=== PATIENT | male | born 1950 | race Caucasian/White ===

== ENCOUNTER → 2023-10-29 | Outpatient (CLI) | payer MEDICARE, SELFPAY ==
--- NOTE | 2023-10-29 | COLBX_PTH ---
PATIENT: TONY CONNOLLY LOC: [facility] U#:[id number] AGE/SX: 73/M ROOM: RE10/29/[address]: Dr. Anjana Licona MD : 1950 BED: DIS: 10/29/2023 SPEC #: [id number] RECD: 10/29/23 17:11 STATUS: OCTAVIO BOWENClint #: [id number] JAROD: 10/29/23 00:[address]: Anjana Licona DEPT: SURGICAL PATHOLOGY RECD BY: Leann Silva Tissues: COLON BIOPSY Procedures: Surgery Specimen Level IV HEADER OPERATION: Colonoscopy PRE-OP DIAGNOSIS: Screening/constipation TISSUE SUBMITTED: Hepatic flexure colon polyp MICROSCOPIC DIAGNOSIS Colonic polyp at hepatic flexure, biopsy: Tubular adenoma. AM/mr 11/02/2023 MICROSCOPIC DESCRIPTION Slides are reviewed. GROSS DESCRIPTION Received in fixative is one container labeled with the patient's name and designated Hepatic flexure colon polyp. The specimen consists of one irregular fragment of light sewell soft tissue that measures 0.3 x 0.3 x 0.1 cm. The specimen is totally submitted in one cassette. JOHNNY/ 11/01/2023 TC:5 CPT:90833
== END | disposition home or self-care (01) ==
PROVIDERS: Visit Provider Surgery
DX: Z12.11 Encounter for screening for malignant neoplasm of colon (principal); D12.3 Benign neoplasm of transverse colon
CPT/HCPCS: 88305

== ENCOUNTER 2023-11-02 18:45 | Inpatient (IN) | payer MEDICARE, SELFPAY ==
[2023-11-02 18:48] VITALS: BP 114/80; PULSE 87; RESP 18; TEMP 37.2; O2SAT 98; BMI 26.9
--- NOTE | 2023-11-02 19:09 | EDS_ITS ---
HPI History of Present Illness Chief Complaint: General Illness Informant: patient and family Narrative Narrative: 73-year-old male presents on Wednesday for a rash and brown discolored urine along with decreased urine output that started on Wednesday-, after he started colonoscopy prep for colonoscopy on Wednesday. He states he did not notice any abnormal symptoms prior to starting the colonoscopy prep and he has had no other medications prior to the colonoscopy. He states the rash is mostly pruritic, not severely pruritic, his son noticed it on his forehead, and he has noticed it on his legs where it is also sore and his legs have been swelling. No swelling anywhere else. No dyspnea or orthopnea. No fevers or chills or other systemic symptoms. He does state that his appetite has been poor since a colonoscopy, but he has been drinking a lot of water and not urinating nearly as much as he should be for as much as he is drinking. PFSH PFSH Medical History no medical history no medical history Home Medications ?Medication ?Instructions ?Recorded ?Last Taken ?Type NK 11/02/23 Unknown History Allergy/AdvReac Type Severity Reaction Status Date / Time No Known Allergies Allergy Verified 11/02/23 18:48 Social History Smoking Status: Former smoker ROS ROS ED Constitutional Constitutional ED: Denies chills or fever(s) Eyes Eyes: Denies change in vision or diplopia ENT ENT ED: Denies rhinorrhea or sore throat Cardiovascular Cardiovascular: Reports leg edema; Denies chest pain, palpitations or syncope Respiratory/Chest Respiratory/Chest: Denies cough, dyspnea or dyspnea on exertion Gastrointestinal Gastrointestinal: Reports other Details: Passing some flatus no bowel movement since his colonoscopy yet ; Denies abdominal pain, diarrhea, nausea or vomiting Genitourinary Genitourinary ED: Reports as per HPI, decreased urination and other Details: Brown discoloration of urine ; Denies dysuria or hematuria Musculoskeletal Musculoskeletal: Denies back pain or neck pain Integumentary Reports rash; Denies abscess Neurologic Neurologic: Denies headache(s), paresthesias or weakness Psychiatric Psychiatric: Denies anxiety or suicidal thoughts EXAM Physical Exam Const Vital Signs: 11/02/23 18:48 11/02/23 18:48 11/02/23 20:16 Temperature 98.9 F 100.2 F H Temperature Source Temporal Oral Pulse Rate 87 Respiratory Rate 18 Respiratory Effort Normal Respiratory Pattern Normal Blood Pressure 114/80 Blood Pressure Mean 91 Pulse Ox 98 Oxygen Delivery Method Room Air Positive well nourished and well developed Constitutional Narrative: Well-appearing, conversive in full sentences General Appearance ED: well developed and NAD HEENT Reports moist mucous membranes HEENT Narrative: Normal mucous membranes no lesions normocephalic and atraumatic Eyes PERRL and EOMs intact bilaterally Eyes Narrative: Normal conjunctivae bilaterally General Eye ED: Negative for scleral icterus Neck full ROM, no lymphadenopathy, supple and no JVD Chest Wall palpation of chest normal Resp normal respiratory effort and clear to auscultation bilaterally Cardio regular rate, regular rhythm and no murmurs Rate: Negative for tachycardic GI non-tender and non-distended Auscultation: normoactive bowel sounds Palpation: soft Back/Spine no CVA tenderness General Back: other FROM Extremity Extremity Narrative: Normal to inspection except for edema in the legs and patchy rash x all 4 General Extremety ED: Yes edema; Negative for pulses abnormal or tenderness General Extremity: edema bilateral lower extremity Details: moderate; Negative for pulses abnormal Neuro oriented x3, CN's II-XII intact bilaterally and no sensory deficits noted Sensorium / Orientation: awake and alert Motor Exam: strength 5/5 throughout Skin no wounds Skin Narrative: Scattered rash throughout the body including both arms and both legs, abdomen, chest, face/forehead, back; there are large patches of blanching erythema some of them are target lesions, nonspecifically tender. No petechiae or purpura. They are not raised. MDM MDM MDM Narrative Medical decision making narrative: This is an unusual rash. Considering the possibility of Lyme disease however usually there is only 1 erythema migrans lesion, and while a couple of these appear like target lesions they are not gigantic and they are everywhere. Erythema multiforme is considered, but no evidence of Prajapati-Jonny syndrome and the patient is not on any drugs other than what he was given during his colonoscopy and I do not think that the prep would be likely to cause any of this since most are fairly inert and not absorbed. Evaluating his labs, indeed his urine is brown/shantell likely because of bilirubin possibly proteinuria, and his bilirubin is a little elevated at 1.4 as are couple of his liver enzymes and his albumin is low which may be contributing to the edema in his legs. His renal function is normal, but there is significant proteinuria. Sodium and potassium both depressed slightly but not a need of emergent replacement, and his blood counts are noted. Patient developed low-grade fever 100.2, otherwise vital signs are normal and no new symptoms. Discussed with hospitalist. Agrees, consistent with nephrotic syndrome, and admission recommended. Etiology of the rash is unknown but his recommendation is to treat empirically for Lyme with Rocephin since we sent the screening test, and request a CT of the abdomen/pelvis with IV contrast to evaluate his liver. Patient does state that he used to drink a lot of alcohol, but he has not drank alcohol in years and never had any issues from it in the past. I reviewed the CT images as well as the report which I agree with. History & Record Review Additional record(s) reviewed:: No prior records (Colonoscopy was at [facility] and records not available) Lab Data Attestation: I reviewed the patient's lab results. Labs: Laboratory Results - last 24 hr 11/02/23 11/02/23 19:30 20:07 WBC 9.7 RBC 4.01 L Hgb 12.6 L Hct 37.4 L MCV 93.3 MCH 31.4 MCHC 33.7 RDW Std Deviation 40.3 RDW Coeff of Atul 11.9 Plt Count 291 MPV 8.8 Immature Gran % (Auto) 0.700 Neut % (Auto) 89.7 H Lymph % (Auto) 5.5 L [place] % (Auto) 2.9 Eos % (Auto) 0.9 Baso % (Auto) 0.3 Absolute Neuts (auto) 8.7 H Absolute Lymphs (auto) 0.54 L Nucleated RBC % 0 Differential Comment SEE COMMENT Platelet Estimate ADEQUATE RBC Morphology N CHROM Anisocytosis RARE Macrocytosis RARE PT 16.1 H INR 1.3 APTT 33.7 Sodium 133 L Potassium 3.2 L Chloride 100 Carbon Dioxide 29.0 Anion Gap 4 L BUN 13 Creatinine 1.29 Estim Creat Clear Calc 55.14 Est GFR (MDRD) Af Amer 70 Est GFR (MDRD) Non-Af 58 L BUN/Creatinine Ratio 10.1 Glucose 107 H Calcium 8.5 Phosphorus 2.3 L Magnesium 2.2 Total Bilirubin 1.40 H AST 53 H ALT 68 H Alkaline Phosphatase 87 Total Creatine Kinase 132 B-Natriuretic Peptide 161.4 H Total Protein 7.4 Albumin 2.9 L Globulin 4.5 H Albumin/Globulin Ratio 0.6 L Prealbumin 7.2 L Urine Color [place]antell Urine Clarity Clear Urine pH 5.0 Ur Specific [place] 1.020 Urine Protein 30 H Urine Glucose (UA) Normal Urine Ketones 5 H Urine Occult Blood 10 H Urine Nitrite Negative Urine Bilirubin 1 H Urine Urobilinogen 12 H Ur Leukocyte Esterase 25 H Urine RBC 0-5 SEEN Urine WBC 0-5 SEEN Ur Squamous Epith Cells 0-5 SEEN Amorphous Sediment 1+ URATE Urine Bacteria 0 SEEN Hyaline Casts 0-5 SEEN Urine Mucus 2+ Radiography Diagnostic Testing: Clinical Impression(s) from Imaging Studies Abdomen/Pelvis CT 11/02/23 20:29 IMPRESSION: Thick-walled gallbladder without calcified stones or pericholecystic edema possibly physiologic. If concern for gallbladder disease ultrasound is recommended Electronically Signed: Farnki Vargas MD at 21:54 EDT Reading Location ID and State: [facility] / [place] Tel , Service support , Management Discussion w/another healthcare provider: Hospitalist Discharge Plan Dx/Rx/DC Orders Clinical Impression: Nephrotic syndrome, Elevated liver enzymes, Rash and nonspecific skin eruption Disposition Disposition: Acute Care Hospital [facility] Discharge Date/Time: 11/02/23 21:42
[2023-11-02 19:39] LABS: Absolute Lymphocyte Count 0.54 X10^3/uL (0.83-4.51); Absolute Neutrophil Count 8.7 X10^3/uL (2.0-7.7); Basophil# 0.03 X10^3/uL; Basophil% 0.3 % (0-1); Eosinophil# 0.09 X10^3/uL; Eosinophils% 0.9 % (0-5); Hematocrit 37.4 % (40-54); Hemoglobin 12.6 g/dL (13.0-16.5); Lymphocyte # 0.54 X10^3/ul (0.83-4.51); Lymphocyte % 5.5 % (19-41); Mean Corp Hgb Conc 33.7 g/dL (32-36); Mean Corpuscular Hgb 31.4 pg (27.0-32.0); Mean Corpuscular Volume 93.3 fL (80-94); Mean Platelet Vol. 8.8 fl (6.2-12.0); Monocyte# 0.28 X10^3/uL; Monocyte% 2.9 % (0-10); NRBC Flagged by Analyzer 0 % (0-5); Neutrophil # 8.73 X10^3/uL (2.7-7.7); Neutrophil % 89.7 % (47-70); POSITIVE DIFFERENTIAL YES; Platelet Count 291 K/mm3 (150-450); RBC Distribution Width CV 11.9 % (11.6-14.6); RBC Distribution Width SD 40.3 fl (35.1-43.9); Red Blood Count 4.01 M/mm3 (4.6-6.2); White Blood Count 9.7 K/mm3 (4.4-11.0)
[2023-11-02 19:43] LABS: Differential Indicated SCAN CRITERIA MET
[2023-11-02 19:51] LABS: International Normalized Ratio 1.3; Prothrombin Time (Protime)PT. 16.1 SECONDS (11.7-14.9)
[2023-11-02 19:52] LABS: Partial Thromboplast Time 33.7 Seconds (24.1-36.2)
[2023-11-02 19:58] LABS: ALB/GLOB Ratio 0.6 RATIO (0.9-2.4); AST(SGOT) 53 U/L (15-37); Alanine Aminotransfer ALT/SGPT 68 U/L (16-61); Albumin, Serum 2.9 g/dL (3.2-5.0); Alkaline Phosphatase 87 U/L (45-117); Anion Gap 4 (5-15); BUN 13 mg/dL (7-18); BUN/Creat Ratio 10.1 RATIO (10-20); Calcium,Total 8.5 mg/dL (8.5-10.1); Chloride 100 mmol/L (98-107); Creatinine, Serum 1.29 mg/dL (0.70-1.30); EST Glomerular Filtration Rate 58 mL/min (>60); Est Glom Filt Rate - Afr Amer 70 mL/min (>60); Estimated Creatinine Clearance 55.14 ml/min; Globulin 4.5 g/dL (2.2-4.2); Glucose 107 mg/dL (74-106); Potassium 3.2 mmol/L (3.5-5.1); Protein, Total 7.4 g/dL (6.4-8.2); Sodium Level 133 mmol/L (136-145)
[2023-11-02 20:07] LABS: Platelet Estimate ADEQUATE (ADEQ)
[2023-11-02 20:08] LABS: Anisocytosis RARE; Macrocytosis RARE; Red Cell Morphology N CHROM NORMAL (NORM C&C)
[2023-11-02 20:13] LABS: Bacteria 0 SEEN /hpf (None Seen)
[2023-11-02 20:15] LABS: Color, Urine Amber (Yellow); Glucose, Dipstick Normal (Normal); Ketone-Dipstick 5 mg/dl (Negative); Leukocyte Esterase-Dipstick 25 /ul (Negative); Nitrite-Dipstick Negative (Negative); Occult Blood-Urine 10 /ul (Negative); Protein-Dipstick 30 mg/dl (Negative); Urine Clarity Clear (Clear); Urine Urobilinogen 12 mg/dl (Normal)
[2023-11-02 20:16] VITALS: TEMP 37.9
[2023-11-02 20:16] LABS: Urine Bilirubin Dipstick 1 mg/dL (Negative)
--- NOTE | 2023-11-02 20:24 | PCM.HP.STD ---
[facility] - General General Date of Admission: 11/02/23 Date of Service: 11/02/23 Chief Complaint: Rash, Fever, LE Edema and Discolored Urine after Bowel Prep for Colonoscopy. HPI Narrative TONY CONNOLLY, is a 73 M with a past medical history of being overweight; with BMI of 26.9 this admission, remote history of binge EtOH abuse; quit several years ago and recent outpatient colonoscopy on Wednesday, October 29, 2023 for which she began bowel prep on Friday, October 27, 2023 with subsequent rash and discolored brownish urine since that time who presents to [facility] complaining of extensive rash, fever and lower extremity edema. Mr. Connolly also admits to decreased urinary output in spite of increasing his fluid intake and he explains his rash is modestly pruritic with his son noticing it on his forehead and also on his legs where he had been swelling. There is no report of swelling in his upper extremities or other body regions but his rash is patchy and present on his trunk and all extremities. There is no complaint of shortness of breath or orthopnea. He does state that he has a poor appetite since colonoscopy. He admits he has [place] staying in a cabin and has had several tick bites recently but he denies a previous history of Lyme disease, kidney disease, nephrotic syndrome or other chronic illness as he is on no medications at this time, has no known drug allergies and has no other significant past medical history. In the ER he was noted to have an extensive modestly pruritic maculopapular rash over his face and legs complicated by laboratory evidence of hypokalemia of 3.2 mmol/L present on admission and mild hyperbilirubinemia with hypertransaminasemia evidenced by elevated total bilirubin of 1.4 mg/dL and AST of 53 units/L and ALT of 68 units/L with hypoalbuminemia of 2.9 g/dL and a urinalysis showing elevated urine bilirubin at 1 mg/dL with an elevated urine protein of 30 mg/dL consistent with suspected early nephrotic syndrome due to tickborne illness with a high index of suspicion for Lyme disease with Lyme total antibody pending at this time. He was then admitted to the general medical floor for ongoing care for stay that is expected to extend beyond 2 midnights. [facility] Medical History no medical history Home Medications ?Medication ?Instructions ?Recorded ?Last Taken ?Type NK 11/02/23 Unknown History Allergy/AdvReac Type Severity Reaction Status Date / Time No Known Allergies Allergy Verified 11/02/23 18:48 Social History Smoking Status: Former smoker ROS ROS Narrative Review of systems: Constitutional: Reports fatigue and weakness with fever 100.2 ?F noted on admission. HEENT: Patient denies headache, runny nose or sore throat. Respiratory/Chest: Patient denies shortness of breath or cough. CVS: Patient denies chest pain, palpitations or heart racing. Gastrointestinal: Denies coffee ground emesis, hematemesis or vomiting Genitourinary: Denies burning urination or new urinary tract symptoms Musculoskeletal: Denies acute joint pain or limited range of motion. No acute injury Neurologic: Patient denies headache, paresthesias or focal neurologic deficits. skin: Patient has a pastchy maculopapular rash over his forehead, trunk, arms and legs as per HPI. Endocrinology: Patient denies polyuria, polydipsia or polyphagia. Hematologic/Lymphatic: Patient admits to new lower extremity edema as per HPI. Rest 14 ROS are negative except as mentioned in HPI Vital Signs Vital Signs Vital Signs: 11/02/23 18:48 11/02/23 18:48 11/02/23 20:16 Temperature 98.9 F 100.2 F H Temperature Source Temporal Oral Pulse Rate 87 Respiratory Rate 18 Respiratory Effort Normal Respiratory Pattern Normal Blood Pressure 114/80 Blood Pressure Mean 91 Pulse Ox 98 Oxygen Delivery Method Room Air Weight Weight: 198 lb 11.2 oz Body Mass Index (BMI) 26.9 Physical Exam Const alert, oriented x3, no apparent distress, average body habitus and healthy appearing General Appearance: cooperative HEENT normocephalic, head/scalp atraumatic, hearing grossly normal bilaterally and moist oral mucous membranes HEENT Narrative: Patient has a rash over his forehead. Eyes PERRL and EOMs intact bilaterally Neck no lymphadenopathy and supple Resp normal respiratory effort, no retractions, no use of accessory muscles and clear to auscultation bilaterally Cardio regular rate and regular rhythm GI normal to inspection, nondistended, normoactive bowel sounds, soft to palpation, non-tender and non-distended Extremity Extremity Narrative: 1-2+ bilateral lower extremity pitting edema noted. Skin Skin Narrative: Patient has a patchy maculopapular rash over his forehead, trunk, arms and legs. Neuro oriented x3, CN's II-XII intact bilaterally, moves all extremities and no focal motor deficits Sensorium / Orientation: awake, alert, oriented to person, oriented to place and oriented to time Speech: speech normal Psych affect normal Results Medical Records Data Attestation: I reviewed the patient's medical records Lab / Micro Data Attestation: I reviewed the patient's lab results. 11/03/23 04:04 11/03/23 04:04 Labs: Laboratory Results - last 24 hr 11/02/23 19:30: WBC 9.7, RBC 4.01 L, Hgb 12.6 L, Hct 37.4 L, MCV 93.3, MCH 31.4, MCHC 33.7, RDW Std Deviation 40.3, RDW Coeff of Atul 11.9, Plt Count 291, MPV 8.8, Immature Gran % (Auto) 0.700, Neut % (Auto) 89.7 H, Lymph % (Auto) 5.5 L, Gage % (Auto) 2.9, Eos % (Auto) 0.9, Baso % (Auto) 0.3, Absolute Neuts (auto) 8.7 H, Absolute Lymphs (auto) 0.54 L, Nucleated RBC % 0, Differential Comment SEE COMMENT, Platelet Estimate ADEQUATE, RBC Morphology N CHROM, Anisocytosis RARE, Macrocytosis RARE, PT 16.1 H, INR 1.3, APTT 33.7, Sodium 133 L, Potassium 3.2 L, Chloride 100, Carbon Dioxide 29.0, Anion Gap 4 L, BUN 13, Creatinine 1.29, Estim Creat Clear Calc 55.14, Est GFR (MDRD) Af Amer 70, Est GFR (MDRD) Non-Af 58 L, BUN/Creatinine Ratio 10.1, Glucose 107 H, Calcium 8.5, Total Bilirubin 1.40 H, AST 53 H, ALT 68 H, Alkaline Phosphatase 87, Total Protein 7.4, Albumin 2.9 L, Globulin 4.5 H, Albumin/Globulin Ratio 0.6 L 11/02/23 20:07: Urine Color [place], Urine Clarity Clear, Urine pH 5.0, Ur Specific [place] 1.020, Urine Protein 30 H, Urine Glucose (UA) Normal, Urine Ketones 5 H, Urine Occult Blood 10 H, Urine Nitrite Negative, Urine Bilirubin 1 H, Urine Urobilinogen 12 H, Ur Leukocyte Esterase 25 H Imaging [facility] Imaging Services [address] [place], [place] [id number] Abdomen/Pelvis W IV Cont ONLY MR#: [id number] Acct: [id number] Name: TONY CONNOLLY Rep #: [id number] : 1950 M 73 From: Franki Vargas MD PCP: Dr. Emory Villafuerte, DO Status: ADM IN Study: Abdomen/Pelvis W IV Cont ONLY Date of Exam: 11/02/23 Exam# [id number] Ordering Dr: Eyal Rogers MD STUDY: CT ABDOMEN AND PELVIS WITH CONTRAST REASON FOR EXAM: Male, 73 years old. elevated liver enzymes RADIATION DOSAGE (If Supplied By Facility): CTDIvol = ( 15.56 ) mGy, DLP = ( 1064.29 ) mGycm TECHNIQUE: Transaxial images were obtained from the dome of the diaphragm to the symphysis pubis without oral contrast. IV 100mL Isovue-370 was administered. Sagittal and coronal images were reconstructed. Individualized dose optimization techniques were used for this CT. COMPARISON: None. FINDINGS: The visualized lung bases are unremarkable. Heart size is normal. There is mild coronary artery calcification. Large hiatal hernia is observed.. Normal liver. [Thick-walled gallbladder without calcified stones or pericholecystic edema.. Normal spleen. Normal pancreas. Normal bilateral adrenal glands. Normal right kidney. Normal left kidney. Normal visualized stomach. Normal small intestine. Normal colon. The appendix is visualized and appears normal. Mild atherosclerotic disease of the aorta without evidence for aneurysm. Normal inferior vena cava. Normal retroperitoneum. Nonspecific enlargement of the prostate in association with diffusely thick-walled bladder Small bilateral fat-containing inguinal hernias.. Lumbar spine demonstrates degenerative changes CT/Abdomen/Pelvis W IV Cont ONLY IMPRESSION: Thick-walled gallbladder without calcified stones or pericholecystic edema possibly physiologic. If concern for gallbladder disease ultrasound is recommended Electronically Signed: Franki Vargas MD at 21:54 EDT Reading Location ID and State: [address] [place] [address] Tel , Service support , CC: Dr. Eyal Rogers MD; Dr. Emory Villafuerte DO ~ Undraped Artist Model: Signed Assessment & Plan Assessment/Plan (1) Tick bite: QUALIFIERS: Encounter type: initial encounter Site of tick bite: unspecified site Qualified Code(s): W57.XXXA - Bitten or stung by nonvenomous insect and other nonvenomous arthropods, initial encounter (2) Lyme disease, unspecified: (3) Rash and nonspecific skin eruption: (4) Elevated liver enzymes: (5) Nephrotic syndrome: (6) Hypokalemia: PLAN: Plan 1. Recent tick bite with high-index of suspicion for underlying Lyme disease evidenced by rash, fever and mild hyperbilirubinemia with hypertransaminasemia evidenced by elevated total bilirubin of 1.4 mg/dL and AST of 53 units/L and ALT of 68 units/L - Admit to general medical floor. Continue antibiotics with IV doxycycline and await Lyme antibody study and tickborne illness titers. Check hepatitis panel to expand differential diagnosis and recheck CMP in a.m to follow trend of response to therapy. Given Benadryl IV as needed for pruritus. Give ibuprofen as needed for pain or fever. Finally, we will consult Dr. Garcia of infectious diseases to see this patient on rounds in a.m. for further recommendations with help appreciated in advance. 2. Hypoalbuminemia of 2.9 g/dL and a urinalysis showing elevated urine bilirubin at 1 mg/dL with an elevated urine protein of 30 mg/dL with a brownish discolored urine consistent with suspected early nephrotic syndrome with new onset lower extremity edema due to tickborne illness likely arising from #1 - Check 24-hour urine collection for protein to confirm suspicion. CT scan of abdomen pelvis also pending to evaluate liver and kidneys for signs of acute inflammation. Check prealbumin to screen for protein calorie malnutrition. Avoid Tylenol or other potentially hepatotoxic agents. 3. Hypokalemia of 3.2 mmol/L present on admission complicating #1 & #2 - Give supplemental KCl and then recheck level in a.m. to ensure improvement. 4. Recent outpatient colonoscopy on Sunday, October 29, 2023 for which she began bowel prep on Friday, October 27, 2023 - Noted. 5. Overweight; with BMI of 26.9 this admission - Weight loss will be recommended. Check TSH. 6. DVT prophylaxis - Lovenox 40 mg sq daily. Total time: Approximately 75 minutes. Charges/Coding Visit Charges Inpatient E&M: 56755 Init Hosp L3
--- NOTE | 2023-11-02 20:29 | CT_ITS ---
STUDY: CT ABDOMEN AND PELVIS WITH CONTRAST REASON FOR EXAM: Male, 73 years old. elevated liver enzymes RADIATION DOSAGE (If Supplied By Facility): CTDIvol = ( 15.56 ) mGy, DLP = ( 1064.29 ) mGycm TECHNIQUE: Transaxial images were obtained from the dome of the diaphragm to the symphysis pubis without oral contrast. IV 100mL Isovue-370 was administered. Sagittal and coronal images were reconstructed. Individualized dose optimization techniques were used for this CT. COMPARISON: None. FINDINGS: The visualized lung bases are unremarkable. Heart size is normal. There is mild coronary artery calcification. Large hiatal hernia is observed.. Normal liver. [Thick-walled gallbladder without calcified stones or pericholecystic edema.. Normal spleen. Normal pancreas. Normal bilateral adrenal glands. Normal right kidney. Normal left kidney. Normal visualized stomach. Normal small intestine. Normal colon. The appendix is visualized and appears normal. Mild atherosclerotic disease of the aorta without evidence for aneurysm. Normal inferior vena cava. Normal retroperitoneum. Nonspecific enlargement of the prostate in association with diffusely thick-walled bladder Small bilateral fat-containing inguinal hernias.. Lumbar spine demonstrates degenerative changes CT/Abdomen/Pelvis W IV Cont ONLY IMPRESSION: Thick-walled gallbladder without calcified stones or pericholecystic edema possibly physiologic. If concern for gallbladder disease ultrasound is recommended Electronically Signed: Franki Vargas MD at 21:54 EDT ,
[2023-11-02 20:52] LABS: Amorphous Sediment 1+ URATE; Hyaline Cast 0-5 SEEN /lpf (0-5); Mucous, Urine 2+ /hpf (<or=2+); Red Blood Cells-Urine 0-5 SEEN /hpf (0-5); Squamous Epithelial Cells - UA 0-5 SEEN /hpf (0-5); White Blood Cells 0-5 SEEN /hpf (0-5)
[2023-11-02 20:56] LABS: CPK Total, Creatine Kinase 132 U/L (39-308)
[2023-11-02 21:14] LABS: BNP,B-Type NATRIURETIC PEPTIDE 161.4 pg/mL (0-100)
[2023-11-02] MEDS: Ceftriaxone 1 GM/50 ML BAG IV (21:15)
[2023-11-02 21:17] VITALS: BP 106/66; PULSE 71; RESP 16; TEMP 37.9; O2SAT 97
[2023-11-02 21:22] VITALS: BP 133/75; PULSE 74; RESP 18; TEMP 37.2; O2SAT 100
[2023-11-02] MEDS: Potassium Chloride Oral Tablet 20 MEQ 60 MEQ PO (21:32)
[2023-11-02] MEDS: KCL 20MEQ in 0.9% NS 20 MEQ/1,000 ML IV.SOLN. 100 MEQ IV (21:32)
[2023-11-02 21:49] LABS: Magnesium 2.2 mg/dL (1.6-2.6); Phosphorus 2.3 mg/dL (2.5-4.9)
[2023-11-02 22:00] VITALS: BP 133/75; PULSE 74; RESP 18; TEMP 37.2; O2SAT 100; BMI 27.0
[2023-11-02 22:14] LABS: Prealbumin 7.2 mg/dL (20.0-40.0)
[2023-11-02] MEDS: Doxycycline 100 MG in Dextrose 5%-Water (250mL Bag) 250 ML 250 MG IV (22:29)
[2023-11-02] MEDS: Zinc Sulfate 50 mg zinc (220 mg) ORAL capsule PO (23:37)
[2023-11-02] MEDS: Lactobacillis Acidophilus 2 CAP PO (23:37)
[2023-11-02] MEDS: Cholecalciferol (Vit D3) 125 MCG CAPSULE (5,000 UNITS) PO (23:38)
[2023-11-03] VITALS (8 sets, daily range): BP systolic 99–112; BP diastolic 58–69; PULSE 70–100; RESP 16–18; TEMP 36.1–39.5; O2SAT 96–100; BMI 27.1
[2023-11-03] MEDS: Ibuprofen 200 MG Tablet PO (02:39)
[2023-11-03] MEDS: DiphenhydrAMINE 50 MG/ML Syringe 25 MG IV (02:40)
[2023-11-03 04:32] LABS: Absolute Lymphocyte Count 0.31 X10^3/uL (0.83-4.51); Absolute Neutrophil Count 11.5 X10^3/uL (2.0-7.7); Basophil# 0.02 X10^3/uL; Basophil% 0.2 % (0-1); Eosinophil# 0.07 X10^3/uL; Eosinophils% 0.6 % (0-5); Hematocrit 34.3 % (40-54); Hemoglobin 11.5 g/dL (13.0-16.5); Lymphocyte # 0.31 X10^3/ul (0.83-4.51); Lymphocyte % 2.6 % (19-41); Mean Corp Hgb Conc 33.5 g/dL (32-36); Mean Corpuscular Hgb 31.1 pg (27.0-32.0); Mean Corpuscular Volume 92.7 fL (80-94); Mean Platelet Vol. 9.2 fl (6.2-12.0); Monocyte# 0.11 X10^3/uL; Monocyte% 0.9 % (0-10); NRBC Flagged by Analyzer 0 % (0-5); Neutrophil # 11.49 X10^3/uL (2.7-7.7); Neutrophil % 95.2 % (47-70); POSITIVE DIFFERENTIAL YES; Platelet Count 279 K/mm3 (150-450); RBC Distribution Width CV 11.9 % (11.6-14.6); RBC Distribution Width SD 40.1 fl (35.1-43.9); White Blood Count 12.1 K/mm3 (4.4-11.0)
[2023-11-03 04:58] LABS: ALB/GLOB Ratio 0.6 RATIO (0.9-2.4); AST(SGOT) 54 U/L (15-37); Alanine Aminotransfer ALT/SGPT 65 U/L (16-61); Albumin, Serum 2.5 g/dL (3.2-5.0); Alkaline Phosphatase 78 U/L (45-117); Anion Gap 9 (5-15); BUN 13 mg/dL (7-18); Calcium,Total 7.8 mg/dL (8.5-10.1); Chloride 105 mmol/L (98-107); Creatinine, Serum 1.18 mg/dL (0.70-1.30); EST Glomerular Filtration Rate 64 mL/min (>60); Est Glom Filt Rate - Afr Amer 77 mL/min (>60); Estimated Creatinine Clearance 60.28 ml/min; Globulin 3.9 g/dL (2.2-4.2); Glucose 135 mg/dL (74-106); Potassium 3.5 mmol/L (3.5-5.1); Protein, Total 6.4 g/dL (6.4-8.2); Sodium Level 137 mmol/L (136-145); Thyroid Stim Hormone (TSH) 1.04 uIU/mL (0.358-3.74)
[2023-11-03 05:13] LABS: Lactic Acid 1.6 mmol/L (0.4-1.9)
[2023-11-03] MEDS: KCL 20MEQ in 0.9% NS 20 MEQ/1,000 ML IV.SOLN. 100 MEQ IV (06:27)
[2023-11-03] MEDS: Cholecalciferol (Vit D3) 125 MCG CAPSULE (5,000 UNITS) PO (09:10)
[2023-11-03] MEDS: Ascorbic Acid 500 MG Tablet 1000 MG PO (09:10)
[2023-11-03] MEDS: Lactobacillis Acidophilus 2 CAP PO (09:10)
[2023-11-03] MEDS: Zinc Sulfate 50 mg zinc (220 mg) ORAL capsule PO (09:11)
[2023-11-03] MEDS: Enoxaparin 40 MG/0.4 ML Syringe SC (09:11)
--- NOTE | 2023-11-03 09:45 | ECHOD_ITS ---
Reason For Study: EDEMA Procedure This was a 2D Doppler, Color Flow transthoracic echocardiogram. Myocardial strain analysis was performed in this exam to aid in the assessment of cardiac function. Exam performed portable in patient room. Left Ventricle Normal LV size. The left ventricular ejection fraction is 45 %. There is mild global hypokinesis of the left ventricle. Right Ventricle Normal RV size. Atria Normal left atrium. Normal right atrium. Mitral Valve Normal mitral valve. Mild (1+) eccentric mitral valve insufficiency. Tricuspid Valve Normal tricuspid valve. Mild tricuspid valve insufficiency. Aortic Valve Trisinus/trileaflet aortic valve. Mild (1+) aortic valve insufficiency. Pulmonic Valve Normal pulmonic valve. Great Vessels Normal aortic root. The pulmonary artery is normal size. Inferior vena cava collapse with respiration. Pericardium/Pleural No pericardial effusion. MMode/2D Measurements & Calculations LVIDd: 5.5 cm IVSd: 0.97 cm LVOT diam: 2.1 cm LVIDs: 4.1 cm LVPWd: 0.90 cm LVOT area: 3.5 cm2 RVDd: 4.0 cm FS: 25.5 % Ao root diam: 3.6 cm LAV(MOD-bp): 53.8 ml LVAd ap4: 30.0 cm2 LAV(MOD-bp) Indexed: 25.4 ml/m2 LVLd ap4: 7.9 cm LAV(MOD-sp2): 51.3 ml EDV(MOD-sp4): 93.1 ml LAV(MOD-sp4): 50.6 ml EDV(sp4-el): 97.4 ml LVAs ap4: 20.5 cm2 LVLs ap4: 6.8 cm ESV(MOD-sp4): 51.2 ml ESV(sp4-el): 52.3 ml EF(MOD-sp4): 45.0 % EF(sp4-el): 46.3 % LVAd ap2: 31.5 cm2 SV(MOD-sp4): 41.9 ml SV(MOD-sp2): 54.8 ml LVLd ap2: 7.9 cm EDV(MOD-sp2): 109.4 ml EDV(sp2-el): 106.5 ml LVAs ap2: 20.7 cm2 LVLs ap2: 6.9 cm ESV(MOD-sp2): 54.6 ml ESV(sp2-el): 52.7 ml EF(MOD-sp2): 50.1 % SV(sp4-el): 45.1 ml LA dimension(2D): 3.6 cm LA A4 area: 19.5 cm2 RA A4 area: 15.7 cm2 TAPSE: 1.7 cm Time Measurements MV dec time: 0.21 sec Doppler Measurements & Calculations MV E max toni: 77.6 cm/sec Lat Peak E' Toni: 12.1 cm/sec Med Peak E' Toni: 9.1 cm/sec MV A max toni: 63.9 cm/sec E/E' lat: 6.4 E/E' med: 8.5 MV E/A: 1.2 Ao V2 max: 150.1 cm/sec AI max toni: 390.7 cm/sec MV dec slope: 377.3 cm/sec2 Ao max P.0 mmHg AI max P.0 mmHg Ao V2 mean: 102.9 cm/sec Ao mean P.8 mmHg AI dec slope: 298.7 cm/sec2 Ao V2 VTI: 28.8 cm AI P1/2t: 383.1 msec AV (velocity ratio): 0.74 TERRI(I,D): 2.6 cm2 TERRI(V,D): 2.8 cm2 LV V1 max: 117.7 cm/sec SV(LVOT): 75.2 ml PA V2 max: 84.5 cm/sec LV V1 max P.5 mmHg PA max PG (full): 1.1 mmHg LV V1 mean P.6 mmHg LV V1 mean: 90.2 cm/sec LV V1 VTI: 21.4 cm TR max toni: 213.4 cm/sec TR max P.2 mmHg ECHO/Echo Complete Interpretation Summary Normal LV size. The left ventricular ejection fraction is 45 %. There is mild global hypokinesis of the left ventricle. Mild tricuspid valve insufficiency. Mild (1+) aortic valve insufficiency. The global longitudinal strain is moderately abnormal. The global longitudinal strain = -13.8% (abnormal). Ordering Physician: Rene Ventura Referring Physician: Judah Paul Performed By: Marlena Garvey RDCS
[2023-11-03] MEDS: Doxycycline 100 MG in Dextrose 5%-Water (250mL Bag) 250 ML 250 MG IV (09:59)
--- NOTE | 2023-11-03 10:23 | CON.PCM.RE_ITS ---
Assessment & Plan Assessment/Plan (1) Proteinuria: PLAN: Extensive anasarca, maculopapular rash. Urine analysis shows 1+ protein and blood. Also gives her bilirubin. LFTs are high, bilirubin is a little bit high. The rash does not look like could be vasculitis. He does have fevers, possible tick bites. Could be Lyme disease. We will send for urine protein creatinine ratio. 24-hour urine collection is pending. I will send a ANCA panel as well. Renal function is preserved. CT abdomen without any hydronephrosis. HPI Consult Data Date of Consult: 11/03/23 HPI Narrative Reason for Consultation: Proteinuria HPI Narrative: TONY CONNOLLY, is a 73 M who presents to the hospital with complaints of lower extremity edema. Nephrology on consultation for proteinuria. Generally healthy, no significant past medical history, no prescription medication intake. Recently had colonoscopy. Immediately after colonoscopy he started having fever, chills, rash, lower extremity edema. Apparently lives in a cabin, several tick bites. Has diffuse maculopapular rash all over the body. Initially itchy and now improving. Urine was darker for the last few days. Today urine looks dark yellow. No gross hematuria. No difficulty passing urine, no breathing problems. No cough, hemoptysis. No [id number] medications/supplements. PFSH Medical History no medical history Home Medications ?Medication ?Instructions ?Recorded ?Last Taken ?Type NK 11/02/23 Unknown History Allergy/AdvReac Type Severity Reaction Status Date / Time No Known Allergies Allergy Verified 11/02/23 18:48 Social History Smoking Status: Former smoker ROS ROS Narrative Negative except above Physical Exam Narrative Alert awake oriented x 3 no obvious distress no pallor no icterus no JVD s1s2 no murmurs lungs clear abdomen soft no organomegaly no edema Extensive maculopapular blanching rash Lab / Micro Data 11/03/23 04:04 11/03/23 04:04 Labs: Laboratory Results - last 24 hr 11/02/23 19:30: WBC 9.7, RBC 4.01 L, Hgb 12.6 L, Hct 37.4 L, MCV 93.3, MCH 31.4, MCHC 33.7, RDW Std Deviation 40.3, RDW Coeff of Atul 11.9, Plt Count 291, MPV 8.8, Immature Gran % (Auto) 0.700, Neut % (Auto) 89.7 H, Lymph % (Auto) 5.5 L, [place] % (Auto) 2.9, Eos % (Auto) 0.9, Baso % (Auto) 0.3, Absolute Neuts (auto) 8.7 H, Absolute Lymphs (auto) 0.54 L, Nucleated RBC % 0, Differential Comment SEE COMMENT, Platelet Estimate ADEQUATE, RBC Morphology N CHROM, Anisocytosis RARE, Macrocytosis RARE, PT 16.1 H, INR 1.3, APTT 33.7, Sodium 133 L, Potassium 3.2 L, Chloride 100, Carbon Dioxide 29.0, Anion Gap 4 L, BUN 13, Creatinine 1.29, Estim Creat Clear Calc 55.14, Est GFR (MDRD) Af Amer 70, Est GFR (MDRD) Non-Af 58 L, BUN/Creatinine Ratio 10.1, Glucose 107 H, Calcium 8.5, Phosphorus 2.3 L, Magnesium 2.2, Total Bilirubin 1.40 H, AST 53 H, ALT 68 H, Alkaline Phosphatase 87, Total Creatine Kinase 132, B-Natriuretic Peptide 161.4 H, Total Protein 7.4, Albumin 2.9 L, Globulin 4.5 H, Albumin/Globulin Ratio 0.6 L, P realbumin 7.2 L 11/02/23 20:07: Urine Color [place], Urine Clarity Clear, Urine pH 5.0, Ur Specific [place] 1.020, Urine Protein 30 H, Urine Glucose (UA) Normal, Urine Ketones 5 H, Urine Occult Blood 10 H, Urine Nitrite Negative, Urine Bilirubin 1 H, Urine Urobilinogen 12 H, Ur Leukocyte Esterase 25 H, Urine RBC 0-5 SEEN, Urine WBC 0-5 SEEN, Ur Squamous Epith Cells 0-5 SEEN, Amorphous Sediment 1+ URATE, Urine Bacteria 0 SEEN, Hyaline Casts 0-5 SEEN, Urine Mucus 2+ 11/03/23 04:04: WBC 12.1 H, RBC 3.70 L, Hgb 11.5 L, Hct 34.3 L, MCV 92.7, MCH 31.1, MCHC 33.5, RDW Std Deviation 40.1, RDW Coeff of Atul 11.9, Plt Count 279, MPV 9.2, Immature Gran % (Auto) 0.500, Neut % (Auto) 95.2 H, Lymph % (Auto) 2.6 L, [place] % (Auto) 0.9, Eos % (Auto) 0.6, Baso % (Auto) 0.2, Absolute Neuts (auto) 11.5 H, Absolute Lymphs (auto) 0.31 L, Nucleated RBC % 0, Sodium 137, Potassium 3.5, Chloride 105, Carbon Dioxide 23.0, Anion Gap 9, BUN 13, Creatinine 1.18, Estim Creat Clear Calc 60.28, Est GFR (MDRD) Af Amer 77, Est GFR (MDRD) Non-Af 64, BUN/Creatinine Ratio 11.0, Glucose 135 H, Lactic Acid 1.6, Calcium 7.8 L, Magnesium 2.0, Total Bilirubin 1.20 H, AST 54 H, ALT 65 H, Alkaline Phosphatase 78, Total Protein 6.4, Albumin 2.5 L, Globulin 3.9, Albumin/Globulin Ratio 0.6 L , TSH 1.04 Imaging Radiology Impression Abdomen/Pelvis CT 11/02/23 20:29 IMPRESSION: Thick-walled gallbladder without calcified stones or pericholecystic edema possibly physiologic. If concern for gallbladder disease ultrasound is recommended Electronically Signed: Franki Vargas MD at 21:54 EDT ,
--- NOTE | 2023-11-03 11:45 | CASEMGMT ---
RN CM Face to Face with patient for initial transition planning/care coordination assessment. RN CM introduced self and role at [facility]. Patient lying in bed, alert and oriented. Patient willing to participate in assessment and is able to answer all questions appropriately. Care providers, pharmacy, and demographics verified. PCP: Christo Specialists: none Preferred Pharmacy: [facility] Insurance: [employer] Prescription Benefit: yes Living Will/HPOA: none LNOK: son Living Arrangements: Patient lives alone in a 2 story home. Patient is independent and able to ambulate stairs. Transportation: self, son DME/HHC: Patient denies DME in the home. No previous HHC or SNF Patient wishes to discharge home, denies need for home health at this time. Patient states he has no further needs or concerns at this time. CM to follow for discharge planning needs that may arise. Disposition Plan: Patient to discharge home with family support and follow-up plans in place. Noelle HAWKINS, RN, CM
--- NOTE | 2023-11-03 12:02 | CHAPLAIN ---
Type of Pastoral Visit _x__ Initial Visit ___ Follow-up Visit ___ On-call Visit ___ General Patient Visit ___ Spiritual Assessment ___ Family Conference ___ Bereavement ___ Rapid Response ___ Code Blue ___ Other (describe below) Pastoral Care Referral From _x__ Patient ___ Family ___ Nurse ___ Physician ___ [place]ardi Developer ___ Bond Broker ___ Other (describe below) Sacrament/Intervention _x__ Active listening ___ Anointing ___ Alevism ___ Bereavement ___ Communion ___ Marily exploration ___ _x__ Life review ___ Prayer ___ Reconciliation ___ Sacrament of Sick _x__ Supportive presence ___ Wedding ___ Other (describe below) Pastoral Comments patient presents self with a strong independent attitude; pt is adamant that he will be taking a shower today, that they don't know why he is sick (with distrust of medical personnel), and that I'll leave when I want to; pt is also very complimentary about the nice people here and everyone is treating me well; pt states that he is not anabaptist; pt lives in the [facility] in a cabin where he likes it away from people; time given to listen to pt and to offer presence and show of concern for him
--- NOTE | 2023-11-03 12:15 | PCM.PN.HOSP ---
Reason for Visit Reason for Visit: Diagnoses Lyme disease, unspecified (11/02/23) Hypokalemia (11/02/23) Nephrotic syndrome with unspecified morphologic changes (11/02/23) Rash and other nonspecific skin eruption (11/02/23) Abnormal levels of other serum enzymes (11/02/23) Proteinuria, unspecified (11/02/23) Bitten or stung by nonvenomous insect and other nonvenomous arthropods, initial encounter (11/02/23) Subjective Subjective Patient was seen and examined today, he was admitted due to concerns of possible Lyme's disease and possible nephrotic syndrome. I had nephrology see the patient today and they do not feel the patient has nephrotic syndrome. Patient does have significant edema in the lower legs, I ordered an echocardiogram to rule out LV dysfunction. Objective Data Objective Data Vital Signs: Vital Signs Temp Pulse Resp BP Pulse Ox O2 Del Method 99.4 F H 92 16 99/66 97 Room Air 11/03/23 08:00 11/03/23 08:00 11/03/23 08:00 11/03/23 08:00 11/03/23 08:00 11/03/23 08:00 Oxygen Delivery Method Room Air Weight: 91 kg Body Mass Index (BMI) 27.1 Intake & Output: Intake and Output for Last 24 Hours 11/01/23 11/02/23 11/03/23 23:59 23:59 23:59 Intake Total 310 / 750 1591.67 / 1591.67 Output Total 300 / 300 Balance 310 / 450 1291.67 / 1291.67 Lab / Micro Data 11/03/23 04:04 11/03/23 04:04 Labs: Laboratory Results - last 24 hr 11/02/23 19:30: WBC 9.7, RBC 4.01 L, Hgb 12.6 L, Hct 37.4 L, MCV 93.3, MCH 31.4, MCHC 33.7, RDW Std Deviation 40.3, RDW Coeff of Atul 11.9, Plt Count 291, MPV 8.8, Immature Gran % (Auto) 0.700, Neut % (Auto) 89.7 H, Lymph % (Auto) 5.5 L, [place] % (Auto) 2.9, Eos % (Auto) 0.9, Baso % (Auto) 0.3, Absolute Neuts (auto) 8.7 H, Absolute Lymphs (auto) 0.54 L, Nucleated RBC % 0, Differential Comment SEE COMMENT, Platelet Estimate ADEQUATE, RBC Morphology N CHROM, Anisocytosis RARE, Macrocytosis RARE, PT 16.1 H, INR 1.3, APTT 33.7, Sodium 133 L, Potassium 3.2 L, Chloride 100, Carbon Dioxide 29.0, Anion Gap 4 L, BUN 13, Creatinine 1.29, Estim Creat Clear Calc 55.14, Est GFR (MDRD) Af Amer 70, Est GFR (MDRD) Non-Af 58 L, BUN/Creatinine Ratio 10.1, Glucose 107 H, Calcium 8.5, Phosphorus 2.3 L, Magnesium 2.2, Total Bilirubin 1.40 H, AST 53 H, ALT 68 H, Alkaline Phosphatase 87, Total Creatine Kinase 132, B-Natriuretic Peptide 161.4 H, Total Protein 7.4, Albumin 2.9 L, Globulin 4.5 H, Albumin/Globulin Ratio 0.6 L, Prealbumin 7.2 L 11/02/23 20:07: Urine Color [place], Urine Clarity Clear, Urine pH 5.0, Ur Specific [place] 1.020, Urine Protein 30 H, Urine Glucose (UA) Normal, Urine Ketones 5 H, Urine Occult Blood 10 H, Urine Nitrite Negative, Urine Bilirubin 1 H, Urine Urobilinogen 12 H, Ur Leukocyte Esterase 25 H, Urine RBC 0-5 SEEN, Urine WBC 0-5 SEEN, Ur Squamous Epith Cells 0-5 SEEN, Amorphous Sediment 1+ URATE, Urine Bacteria 0 SEEN, Hyaline Casts 0-5 SEEN, Urine Mucus 2+ 11/03/23 04:04: WBC 12.1 H, RBC 3.70 L, Hgb 11.5 L, Hct 34.3 L, MCV 92.7, MCH 31.1, MCHC 33.5, RDW Std Deviation 40.1, RDW Coeff of Atul 11.9, Plt Count 279, MPV 9.2, Immature Gran % (Auto) 0.500, Neut % (Auto) 95.2 H, Lymph % (Auto) 2.6 L, [place] % (Auto) 0.9, Eos % (Auto) 0.6, Baso % (Auto) 0.2, Absolute Neuts (auto) 11.5 H, Absolute Lymphs (auto) 0.31 L, Nucleated RBC % 0, Sodium 137, Potassium 3.5, Chloride 105, Carbon Dioxide 23.0, Anion Gap 9, BUN 13, Creatinine 1.18, Estim Creat Clear Calc 60.28, Est GFR (MDRD) Af Amer 77, Est GFR (MDRD) Non-Af 64, BUN/Creatinine Ratio 11.0, Glucose 135 H, Lactic Acid 1.6, Calcium 7.8 L, Magnesium 2.0, Total Bilirubin 1.20 H, AST 54 H, ALT 65 H, Alkaline Phosphatase 78, Total Protein 6.4, Albumin 2.5 L, Globulin 3.9, Albumin/Globulin Ratio 0.6 L, TSH 1.04 Radiography Diagnostic Testing: Radiology Impression Abdomen/Pelvis CT 11/02/23 20:29 IMPRESSION: Thick-walled gallbladder without calcified stones or pericholecystic edema possibly physiologic. If concern for gallbladder disease ultrasound is recommended Electronically Signed: Franki Vargas MD at 21:54 EDT Reading Location ID and State: [facility] / [place] Tel , Service support , Physical Exam Const alert, oriented x3, no apparent distress, average body habitus and healthy appearing Constitutional Narrative: Patient has a diffuse rash over multiple areas of the body, this rash is flat there are no bullae noted General Appearance: cooperative, well kempt and well developed Orientation / Consciousness: awake, oriented to person, oriented to place and oriented to time HEENT normocephalic, head/scalp atraumatic and moist oral mucous membranes Eyes PERRL, EOMs intact bilaterally and conjunctivae normal Neck supple, no JVD, thyroid normal and no carotid bruits General: trachea midline Resp normal respiratory effort, no retractions, no use of accessory muscles and clear to auscultation bilaterally Auscultation: Negative for rales, rhonchi or wheezes Cardio regular rate, regular rhythm, S1 normal heart sound, S2 normal heart sound, no murmurs, no rub and no gallops GI normal to inspection, nondistended, normoactive bowel sounds, soft to palpation, non-tender and non-distended Extremity Extremity Narrative: There is generalized edema which is pitting noted over the feet, ankle areas, and lower legs Skin Skin Narrative: There is a diffuse flat red rash over the patient's arms and chest and legs General Skin Exam: no breakdown Neuro oriented x3, CN's II-XII intact bilaterally, no focal motor deficits and no sensory deficits noted Sensorium / Orientation: awake and alert Speech: speech normal Psych affect normal Assessment & Plan Assessment/Plan (1) Rash and nonspecific skin eruption: PLAN: Plan 1. Diffuse rash-etiology unclear, patient is being seen by infectious diseases, he currently is on doxycycline #2 proteinuria-nephrology is participating in his care, he does not have nephrotic syndrome #3 lower extremity edema-etiology unclear-echocardiogram was ordered to rule out LV dysfunction #4 hyperbilirubinemia-this is mild at this time, I do not feel I need to order additional studies, patient does have some elevation of his liver enzymes which appear to be minor Total clinical time spent by myself addressing the patient's medical issues, reviewing all of his data, and collaborating with patient's care team: 35 minutes Charges/Coding Visit Charges Inpatient E&M: 96962 Subs Hosp L2
--- NOTE | 2023-11-03 13:21 | PCM.CONS.GEN ---
Assessment & Plan Assessment/Plan (1) Rash and nonspecific skin eruption: PLAN: fever, rash, fatigue, urine changes, mild LFT elevation - seen by neph. 24h urine pending. Lyme pending. Hep panel pending. Feeling better. Cont doxy, will change to po. Will follow, thank you HPI Consult Data Date of Consult: 11/03/23 HPI Narrative Reason for Consultation: fever HPI Narrative: TONY CONNOLLY, is a 73 M with remote h/o etoh abuse, had colonoscopy 10/26. After procedure, developed rash, nausea, fever, edema, headache, n/v/d, severe fatigue. Rash was red, itchy. Lives [place] cabin with [place] over [place] summer, has a dog, no other animal exposures, no recent sex partners. Has ticks occasionally, but none embedded in him and he checks frequently himself and his dog. No joint or muscle aches. No sick contacts. Urine also turned dark brown and opaque. Admitted from ED on iv doxy, seen by neph. Feeling better today. Full ROS performed and neg except as noted above. PFSH Medical History no medical history Home Medications ?Medication ?Instructions ?Recorded ?Last Taken ?Type NK 11/02/23 Unknown History Allergy/AdvReac Type Severity Reaction Status Date / Time No Known Allergies Allergy Verified 11/02/23 18:48 Social History Smoking Status: Former smoker Physical Exam Const alert, oriented x3 and no apparent distress General Appearance: cooperative HEENT normocephalic and head/scalp atraumatic Eyes PERRL and EOMs intact bilaterally Neck supple and No nodes Resp normal air movement and clear to auscultation bilaterally Cardio regular rate and regular rhythm GI soft to palpation, non-tender and non-distended Extremity General Extremity: edema Skin Skin Narrative: diffuse patchy erythema on trunks and limbs Neuro CN's II-XII intact bilaterally Lab / Micro Data Attestation: I reviewed the patient's lab results. 11/03/23 04:04 11/03/23 04:04 Labs: Laboratory Results - last 24 hr 11/02/23 19:30: WBC 9.7, RBC 4.01 L, Hgb 12.6 L, Hct 37.4 L, MCV 93.3, MCH 31.4, MCHC 33.7, RDW Std Deviation 40.3, RDW Coeff of Atul 11.9, Plt Count 291, MPV 8.8, Immature Gran % (Auto) 0.700, Neut % (Auto) 89.7 H, Lymph % (Auto) 5.5 L, [place] % (Auto) 2.9, Eos % (Auto) 0.9, Baso % (Auto) 0.3, Absolute Neuts (auto) 8.7 H, Absolute Lymphs (auto) 0.54 L, Nucleated RBC % 0, Differential Comment SEE COMMENT, Platelet Estimate ADEQUATE, RBC Morphology N CHROM, Anisocytosis RARE, Macrocytosis RARE, PT 16.1 H, INR 1.3, APTT 33.7, Sodium 133 L, Potassium 3.2 L, Chloride 100, Carbon Dioxide 29.0, Anion Gap 4 L, BUN 13, Creatinine 1.29, Estim Creat Clear Calc 55.14, Est GFR (MDRD) Af Amer 70, Est GFR (MDRD) Non-Af 58 L, BUN/Creatinine Ratio 10.1, Glucose 107 H, Calcium 8.5, Phosphorus 2.3 L, Magnesium 2.2, Total Bilirubin 1.40 H, AST 53 H, ALT 68 H, Alkaline Phosphatase 87, Total Creatine Kinase 132, B-Natriuretic Peptide 161.4 H, Total Protein 7.4, Albumin 2.9 L, Globulin 4.5 H, Albumin/Globulin Ratio 0.6 L, Prealbumin 7.2 L 11/02/23 20:07: Urine Color [place], Urine Clarity Clear, Urine pH 5.0, Ur Specific [place] 1.020, Urine Protein 30 H, Urine Glucose (UA) Normal, Urine Ketones 5 H, Urine Occult Blood 10 H, Urine Nitrite Negative, Urine Bilirubin 1 H, Urine Urobilinogen 12 H, Ur Leukocyte Esterase 25 H, Urine RBC 0-5 SEEN, Urine WBC 0-5 SEEN, Ur Squamous Epith Cells 0-5 SEEN, Amorphous Sediment 1+ URATE, Urine Bacteria 0 SEEN, Hyaline Casts 0-5 SEEN, Urine Mucus 2+ 11/03/23 04:04: WBC 12.1 H, RBC 3.70 L, Hgb 11.5 L, Hct 34.3 L, MCV 92.7, MCH 31.1, MCHC 33.5, RDW Std Deviation 40.1, RDW Coeff of Atul 11.9, Plt Count 279, MPV 9.2, Immature Gran % (Auto) 0.500, Neut % (Auto) 95.2 H, Lymph % (Auto) 2.6 L, [place] % (Auto) 0.9, Eos % (Auto) 0.6, Baso % (Auto) 0.2, Absolute Neuts (auto) 11.5 H, Absolute Lymphs (auto) 0.31 L, Nucleated RBC % 0, Sodium 137, Potassium 3.5, Chloride 105, Carbon Dioxide 23.0, Anion Gap 9, BUN 13, Creatinine 1.18, Estim Creat Clear Calc 60.28, Est GFR (MDRD) Af Amer 77, Est GFR (MDRD) Non-Af 64, BUN/Creatinine Ratio 11.0, Glucose 135 H, Lactic Acid 1.6, Calcium 7.8 L, Magnesium 2.0, Total Bilirubin 1.20 H, AST 54 H, ALT 65 H, Alkaline Phosphatase 78, Total Protein 6.4, Albumin 2.5 L, Globulin 3.9, Albumin/Globulin Ratio 0.6 L, TSH 1.04 Imaging Radiology Impression Abdomen/Pelvis CT 11/02/23 20:29 IMPRESSION: Thick-walled gallbladder without calcified stones or pericholecystic edema possibly physiologic. If concern for gallbladder disease ultrasound is recommended Electronically Signed: Franki Vargas MD at 21:54 EDT Reading Location ID and State: [facility] / [place] Tel , Service support ,
--- NOTE | 2023-11-03 14:30 | NURSING ---
This RN taking over care at this time
[2023-11-03] MEDS: Doxycycline 100 MG CAPSULE PO (21:22)
[2023-11-04 04:00] VITALS: BP 107/64; PULSE 69; RESP 18; TEMP 36; O2SAT 98
[2023-11-04 04:01] VITALS: BMI 27.6
[2023-11-04 05:07] LABS: HEPATITIS B SURFACE AG Negative (Negative); Hep C Antibodies Non Reactive (Non Reactive); Hepatitis A IgM Antibody Negative (Negative); Hepatitis B Core AB IgM Negative (Negative)
[2023-11-04 06:36] LABS: 24 Hour Urine Protein 316.2 mg/24HR (<150 MG/24HR); 24HR. UA Prot. Total Volume 600 mL; Urine Protein (24 Hour) 52.7 mg/dL (<11.9)
[2023-11-04 07:26] LABS: Absolute Neutrophil Count 7.5 X10^3/uL (2.0-7.7); Basophil# 0.02 X10^3/uL; Basophil% 0.2 % (0-1); Eosinophil# 0.23 X10^3/uL; Eosinophils% 2.6 % (0-5); Hematocrit 33.4 % (40-54); Hemoglobin 11.1 g/dL (13.0-16.5); Mean Corp Hgb Conc 33.2 g/dL (32-36); Mean Corpuscular Hgb 31.4 pg (27.0-32.0); Mean Corpuscular Volume 94.4 fL (80-94); Mean Platelet Vol. 9.1 fl (6.2-12.0); Monocyte% 2.3 % (0-10); NRBC Flagged by Analyzer 0 % (0-5); Neutrophil # 7.52 X10^3/uL (2.7-7.7); Neutrophil % 85.1 % (47-70); Platelet Count 255 K/mm3 (150-450); RBC Distribution Width CV 12.2 % (11.6-14.6); RBC Distribution Width SD 42.5 fl (35.1-43.9); Red Blood Count 3.54 M/mm3 (4.6-6.2); White Blood Count 8.8 K/mm3 (4.4-11.0)
[2023-11-04 07:47] LABS: Anion Gap 6 (5-15); BUN 13 mg/dL (7-18); BUN/Creat Ratio 13.4 RATIO (10-20); Calcium,Total 8.4 mg/dL (8.5-10.1); Chloride 109 mmol/L (98-107); Creatinine, Serum 0.97 mg/dL (0.70-1.30); EST Glomerular Filtration Rate 80 mL/min (>60); Est Glom Filt Rate - Afr Amer 97 mL/min (>60); Estimated Creatinine Clearance 73.33 ml/min; Glucose 109 mg/dL (74-106); Phosphorus 2.4 mg/dL (2.5-4.9); Potassium 3.8 mmol/L (3.5-5.1); Sodium Level 139 mmol/L (136-145)
[2023-11-04 08:10] LABS: Cholesterol 93 mg/dL (200); High Density Lipoprotein 21 mg/dL; Triglycerides 92 mg/dL; Very Low Density Lipoprotein 18 mg/dL (5-40)
[2023-11-04 08:22] VITALS: BP 123/75; PULSE 81; RESP 12; TEMP 36.8; O2SAT 99
[2023-11-04] MEDS: Enoxaparin 40 MG/0.4 ML Syringe SC (08:23)
[2023-11-04] MEDS: Cholecalciferol (Vit D3) 125 MCG CAPSULE (5,000 UNITS) PO (08:24)
[2023-11-04] MEDS: Doxycycline 100 MG CAPSULE PO (08:24)
[2023-11-04 08:30] VITALS: BP 123/75; PULSE 81; RESP 12; TEMP 36.8; O2SAT 99
[2023-11-04 09:17] LABS: Vitamin B12 170 pg/mL (211-911)
--- NOTE | 2023-11-04 10:20 | PCM.PN.ID ---
Physical Exam Narrative Feeling much better, no fever, rash much improved. Const alert and no apparent distress General Appearance: cooperative Resp normal air movement and clear to auscultation bilaterally Cardio regular rate and regular rhythm GI soft to palpation, non-tender and non-distended Skin Skin Narrative: fading erythema ID ID: Route of nutrition/ use of supplements: [] Nutritional Intake: [] IV Site: [] Doss Catheter: [] Assessment & Plan Assessment/Plan (1) Rash and nonspecific skin eruption: PLAN: fever, rash, fatigue, urine changes, mild LFT elevation - seen by neph. 24h urine pending. Lyme pending. Hep panel neg. Feeling better. Cont doxy for one more week, ok for d/c home. Will follow
[2023-11-04 10:23] LABS: Protein, Urine (Random) 21.6 mg/dL (<11.9); Protein:Creat Ratio 166 mg/g CRE (0-200)
[2023-11-04 11:06] LABS: Ferritin 822 ng/mL (26-388); Iron 50 ug/dL (65-175); Iron Binding Capacity,Total 146 ug/dL (250-450); PERCENT IRON SATURATION 34.2 % (15.0-55.0)
[2023-11-04 13:08] LABS: Lyme IGG CIA Positive (Negative); Lyme IGM CIA Positive (Negative); Lyme Scn Total Ab w/Rflx Positive (Negative)
--- NOTE | 2023-11-04 14:35 | PCM.CONS.C ---
Assessment & Plan Assessment/Plan (1) LV dysfunction: PLAN: Patient has been diagnosed with Lyme disease. His symptoms started acutely around the same time. Patient's LV dysfunction could be related to his Lyme disease. We will not start him on a beta-carlotta or RAMIRO inhibitor at this time. He will start him on Lasix 20 mg that he can use on a as needed basis. Patient can follow-up with us as an outpatient in about 2 weeks. At that time we will order a 2D echo to see if he has persistent LV dysfunction. If he has persistent LV dysfunction then we can consider further workup for the etiology with coronary angiography or a stress test. At that time we can consider RAMIRO inhibitor and beta-carlotta. I would recommend a 48-hour Holter or 14-day event monitor at the time of discharge to see if patient develops any conduction system issues. At this time there are no symptoms related to that. HPI Consult Data Date of Consult: 11/04/23 HPI Narrative Reason for Consultation: LV dysfunction HPI Narrative: TONY CONNOLLY, is a 73 M who presents with a rash. He was diagnosed with Lyme disease and is on treatment for that. He also has been having edema for the last few days. The edema started around the same time as his rash. 2D echo revealed an EF of 45%. Patient denies any shortness of breath or chest pain. Review of systems: All systems reviewed. All else is negative except that in the [facility] Medical History no medical history Home Medications ?Medication ?Instructions ?Recorded ?Last Taken ?Type NK 11/02/23 Unknown History Allergy/AdvReac Type Severity Reaction Status Date / Time No Known Allergies Allergy Verified 11/02/23 18:48 Social History Smoking Status: Former smoker Physical Exam Const alert and oriented x3 HEENT normocephalic Resp normal respiratory effort Cardio regular rate Extremity Extremity Narrative: 1-2+ bilateral pitting edema Risk Stratification Risk Stratification Applicable: No Charges/Coding Visit Charges Inpatient E&M: 64139 Init Hosp L2 Objective Data Vital Signs: Vital Signs Temp Pulse Resp BP Pulse Ox O2 Del Method 98.2 F 81 12 123/75 H 99 Room Air 11/04/23 08:30 11/04/23 08:30 11/04/23 08:30 11/04/23 08:30 11/04/23 08:30 11/04/23 08:30 Oxygen Delivery Method Room Air Weight: 203 lb 14.841 oz Body Mass Index (BMI) 27.6 Intake & Output: Intake and Output for Last 24 Hours 11/02/23 11/03/23 11/04/23 23:59 23:59 23:59 Intake Total 310 / 750 3236.67 / 3236.67 240 / 240 Output Total 300 / 300 400 / 400 Balance 310 / 450 2936.67 / 2936.67 -160 / -160 Lab / Micro Data 11/04/23 06:30 11/04/23 06:30 Labs: Laboratory Results - last 24 hr 11/02/23 19:30: CSF Lyme IgM Antibody Positive, Lyme Disease IgG Ab Positive, Lyme Total Antibody Positive, Lyme Disease Ab Note Comment H 11/03/23 04:04: Hepatitis A IgM Ab Negative, Hep Bs Antigen Negative, Hep B Core IgM Ab Negative, Hepatitis C Ab (EIA) Non Reactive, Hep C Ab Comment Comment 11/04/23 04:49: Urine Collection Time 24.0, Timed Urine Volume 600, Ur Total Protein 24 Hr 316.2 H, Urine Total Protein 52.7 H 11/04/23 06:30: WBC 8.8, RBC 3.54 L, Hgb 11.1 L, Hct 33.4 L, MCV 94.4 H, MCH 31.4, MCHC 33.2, RDW Std Deviation 42.5, RDW Coeff of Autl 12.2, Plt Count 255, MPV 9.1, Immature Gran % (Auto) 0.800, Neut % (Auto) 85.1 H, Lymph % (Auto) 9.0 L, [place] % (Auto) 2.3, Eos % (Auto) 2.6, Baso % (Auto) 0.2, Absolute Neuts (auto) 7.5, Absolute Lymphs (auto) 0.80 L, Nucleated RBC % 0, Sodium 139, Potassium 3.8, Chloride 109 H, Carbon Dioxide 24.0, Anion Gap 6, BUN 13, Creatinine 0.97, Estim Creat Clear Calc 73.33, Est GFR (MDRD) Af Amer 97, Est GFR (MDRD) Non-Af 80, BUN/Creatinine Ratio 13.4, Glucose 109 H, Calcium 8.4 L, Phosphorus 2.4 L, Iron 50 L, TIBC 146 L, Iron Saturation 34.2, Ferritin 822 H, Triglycerides 92, Cholesterol 93, LDL Cholesterol 54, VLDL Cholesterol 18, HDL Cholesterol 21 L, Vitamin B12 170 L, Folate 5.50 11/04/23 10:04: U Random Total Protein 21.6 H, Urine Creatinine 130.00, Protein/Creatinin Ratio 166 Cardiology Labs/Tests 11/04/23 06:30: WBC 8.8, RBC 3.54 L, Hgb 11.1 L, Hct 33.4 L, MCV 94.4 H, MCH 31.4, MCHC 33.2, Plt Count 255, MPV 9.1, Immature Gran % (Auto) 0.800, Neut % (Auto) 85.1 H, Lymph % (Auto) 9.0 L, [place] % (Auto) 2.3, Eos % (Auto) 2.6, Baso % (Auto) 0.2, Absolute Neuts (auto) 7.5, Nucleated RBC % 0, Sodium 139, Potassium 3.8, Chloride 109 H, Carbon Dioxide 24.0, Anion Gap 6, BUN 13, Creatinine 0.97, Est GFR (MDRD) Af Amer 97, Est GFR (MDRD) Non-Af 80, BUN/Creatinine Ratio 13.4, Glucose 109 H, Calcium 8.4 L, Phosphorus 2.4 L, Iron 50 L, TIBC 146 L, Iron Saturation 34.2, Ferritin 822 H, Triglycerides 92, Cholesterol 93, LDL Cholesterol 54, VLDL Cholesterol 18, HDL Cholesterol 21 L Rhythm: EKG: ECHO: Stress Test: Cardiac Cath: PCI: CT Surgery: Holter monitor: EPS: PPM: CXR: Chest CT Scan: Radiography Diagnostic Testing: Radiology Impression Echocardiogram 11/03/23 09:45 Interpretation Summary Normal LV size. The left ventricular ejection fraction is 45 %. There is mild global hypokinesis of the left ventricle. Mild tricuspid valve insufficiency. Mild (1+) aortic valve insufficiency. The global longitudinal strain is moderately abnormal. The global longitudinal strain = -13.8% (abnormal). Ordering Physician: Rene Ventura Referring Physician: Judah Paul Performed By: Marlena Garvey RDCS
--- NOTE | 2023-11-04 14:44 | PCM.DC ---
Discharge Instructions Diet Discharge Diet: No restrictions Activity Discharge Activity: No Restrictions Follow Up Care Test Results: Test results from this visit will be discussed in further detail at your follow-up appointment, if applicable. Discharge Plan Admission Admit Date/Time: 11/02/23 20:51 Primary Reason for Your Visit: Rash and discolored urine Attending Provider: Jeff Huerta Primary Care Provider: Emory Villafuerte Consulting Providers: Ronal Garcia; Judah Paul; [place]; Rene Ventura; Escobar Bran Instructions Additional Instructions / Restrictions: Please take doxycycline for another 7 days to complete course of antibiotics for possible Lyme disease. Please start taking Lasix 20 mg daily for mild heart failure. The 30-day cardiac event monitor will come in the mail for you, please use as instructed. Discharge Orders/Prescriptions Prescriptions: New doxycycline monohydrate 100 mg Capsule 100 mg PO BID 7 Days Qty: 14 0RF furosemide [Lasix] 20 mg tablet 20 mg PO DAILY Qty: 30 2RF No Action NK Other Ambulatory Orders: 30 Day Event Recorder Preventi (Routine) Timeframe: 1 Month Facility: [facility] - Location: Cardiovascular Services Ordered By: Dr. Jeff Huerta Referrals / Follow Up: Emory Villafuerte DO [Primary Care Provider] - Disposition Disposition (needs filled in before D/C Order can be placed): Home, Self Care
--- NOTE | 2023-11-04 14:44 | PCM.DC.SUM ---
Providers Date of Admission: 11/02/23 Date of Discharge: 11/04/23 Primary Care Physician: Dr. Emory Villafuerte, Consultations 11/02/23 20:47 Consult: Infectious Disease Routine Consulting Provider: Ronal Garcia Reason for Consult: Suspected Lyme disease with elevated bilirubin, LFTs and suspected nephroti EMERGENT Consult: No MD Notified: Yes Date Notified: 11/03/23 Time Notified: 06:11 Method of Notification: Text 11/03/23 08:34 Consult: Nephrology Routine Consulting Provider: [place] Reason for Consult: protein in urine EMERGENT Consult: No Notified: Yes Date Notified: 11/03/23 Time Notified: 08:34 Method of Notification: Verbal 11/04/23 08:10 Consult: Cardiology Routine Consulting Provider: Escobar Bran Reason for Consult: new onset mild HFrEF w/ global long strain EMERGENT Consult: No MD Notified: Yes Date Notified: 11/04/23 Time Notified: 08:16 Method of Notification: Text Reason For Visit: SUSPECTED LYME DISEASE WITH RASH, FEVER, Diagnosis Discharge Diagnosis (1) HFrEF (heart failure with reduced ejection fraction): Status: Acute Code(s): I50.20 - Unspecified systolic (congestive) heart failure (2) Lyme disease, unspecified: Status: Acute Code(s): A69.20 - Lyme disease, unspecified (3) Proteinuria: Status: Acute Code(s): R80.9 - Proteinuria, unspecified (4) Elevated liver enzymes: Status: Acute Code(s): R74.8 - Abnormal levels of other serum enzymes Medications at Discharge Home Medications NK 11/02/23 doxycycline monohydrate 100 mg capsule 100 mg PO BID 7 days #14 caps 11/04/23 furosemide 20 mg tablet (Lasix) 20 mg PO DAILY #30 tabs 11/04/23 Hospital Course Operations None Procedures Transthoracic echo and - (CT abdomen pelvis with IV contrast) Summary of Care Provided Minutes Spent on Discharge: 35 Hospital Course: Patient is a 73-year-old male who presented [facility] ED on 11/02/2023 with a rash and brown discolored urine. 1. Suspected Lyme disease ? Infectious disease followed. Presented with diffuse rash and fevers concerning for possible Lyme disease though no tick bite known. Significant improvement on antibiotics during hospitalization. Per ID, discharged on p.o. doxycycline with plan for 7 more days of antibiotics on discharge. Lyme antibody pending on discharge. 2. 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 Cardiology followed. Echo on 11/02 showed EF 45%, mild global hypokinesis of left ventricle with moderately abnormal global longitudinal strain, otherwise unremarkable. Per cardiology, highest concern is that LV dysfunction could be related to his Lyme disease. Will start Lasix 20 mg daily as needed for his lower extremity swelling, no need to start a carlotta or RAMIRO inhibitor at this time. 30-day cardiac event monitor ordered. Outpatient follow-up with cardiology in 2 weeks with repeat echo at that time and if he has persistent LV dysfunction, can then consider further workup for etiology with coronary angiography or stress test. 3. Mild creatinine elevation, improving; proteinuria ? Nephrology followed. Suspected that mild creatinine elevation and proteinuria could be secondary to acute Lyme disease. Creatinine 1.2 on admit, improved to 0.9 by day of discharge so renal function preserved. CT abdomen pelvis without any hydronephrosis. Not consistent with nephrotic syndrome. ANCA panel pending on discharge. Treating Lyme disease as noted above. 4. Mild normocytic anemia ? Hemoglobin 12.6 on admit, down trended to 11.5 on hospital day 2 after IV fluid administration. Stable around 11 on discharge. Iron studies with elevated ferritin of 822, consistent with a degree of anemia of chronic disease, and B12 level slightly low at 170. B12 supplement prescribed on discharge. 5. Mildly elevated LFTs, improving ? T. bili 1.40, AST 53, ALT 68 on admit. Hepatitis panel negative. CT abdomen pelvis with IV contrast on admit with normal liver, thick-walled gallbladder without stones suspected to be physiologic. Suspected that mild LFT elevation is secondary to acute Lyme disease. No need to monitor further labs on discharge. 6. Remote history of alcohol abuse ? Encouraged continued cessation. Total clinical time spent by myself addressing the patient's medical issues, reviewing all the data, and collaborating with patient's care team: 35 minutes. Physical Exam Const alert, oriented x3, no apparent distress, average body habitus, healthy appearing and well nourished General Appearance: cooperative, comfortable, well kempt and well developed HEENT normocephalic, head/scalp atraumatic, hearing grossly normal bilaterally, nasal mucous membranes and turbinates normal and moist oral mucous membranes Eyes PERRL, EOMs intact bilaterally and conjunctivae normal Neck full ROM Chest inspection of chest normal Resp normal respiratory effort, normal air movement, no use of accessory muscles and clear to auscultation bilaterally Cardio regular rate, regular rhythm, no murmurs and peripheral pulses 2+ throughout GI normal to inspection, nondistended, normoactive bowel sounds, soft to palpation, non-tender and non-distended Back/Spine normal ROM Extremity normal to inspection and full ROM Extremity Narrative: +1-2 lower extremity pitting edema noted. Skin Skin Narrative: Diffuse rash over arms, chest and legs, much improved from admission. Neuro moves all extremities and no focal motor deficits Speech: speech normal Psych mental status grossly normal Weight / BMI Weight Weight: 92.5 kg Body Mass Index (BMI) 27.6 ABG / Lab / Microbiology Data 11/04/23 06:30 11/04/23 06:30 Laboratory: Laboratory Results - last 24 hr 11/02/23 19:30: CSF Lyme IgM Antibody Positive, Lyme Disease IgG Ab Positive, Lyme Total Antibody Positive, Lyme Disease Ab Note Comment H 11/03/23 04:04: Hepatitis A IgM Ab Negative, Hep Bs Antigen Negative, Hep B Core IgM Ab Negative, Hepatitis C Ab (EIA) Non Reactive, Hep C Ab Comment Comment 11/04/23 04:49: Urine Collection Time 24.0, Timed Urine Volume 600, Ur Total Protein 24 Hr 316.2 H, Urine Total Protein 52.7 H 11/04/23 06:30: WBC 8.8, RBC 3.54 L, Hgb 11.1 L, Hct 33.4 L, MCV 94.4 H, MCH 31.4, MCHC 33.2, RDW Std Deviation 42.5, RDW Coeff of Atul 12.2, Plt Count 255, MPV 9.1, Immature Gran % (Auto) 0.800, Neut % (Auto) 85.1 H, Lymph % (Auto) 9.0 L, [place] % (Auto) 2.3, Eos % (Auto) 2.6, Baso % (Auto) 0.2, Absolute Neuts (auto) 7.5, Absolute Lymphs (auto) 0.80 L, Nucleated RBC % 0, Sodium 139, Potassium 3.8, Chloride 109 H, Carbon Dioxide 24.0, Anion Gap 6, BUN 13, Creatinine 0.97, Estim Creat Clear Calc 73.33, Est GFR (MDRD) Af Amer 97, Est GFR (MDRD) Non-Af 80, BUN/Creatinine Ratio 13.4, Glucose 109 H, Calcium 8.4 L, Phosphorus 2.4 L, Iron 50 L, TIBC 146 L, Iron Saturation 34.2, Ferritin 822 H, Triglycerides 92, Cholesterol 93, LDL Cholesterol 54, VLDL Cholesterol 18, HDL Cholesterol 21 L, Vitamin B12 170 L, Folate 5.50 11/04/23 10:04: U Random Total Protein 21.6 H, Urine Creatinine 130.00, Protein/Creatinin Ratio 166 Radiography Diagnostic Testing: Radiology Impression Echocardiogram 11/03/23 09:45 Interpretation Summary Normal LV size. The left ventricular ejection fraction is 45 %. There is mild global hypokinesis of the left ventricle. Mild tricuspid valve insufficiency. Mild (1+) aortic valve insufficiency. The global longitudinal strain is moderately abnormal. The global longitudinal strain = -13.8% (abnormal). Ordering Physician: Rene Ventura Referring Physician: Judah Paul Performed By: Marlena Garvey RDCS Meaningful Use Info Meaningful Use Meaningful Use Diagnoses (Choose all that apply): None applicable Ischemic Stroke Statin Dosing Therapy Reference: STATIN DOSE THERAPY REFERENCE: * Patients > 75 years receive moderate or high dose statin therapy. * Patients 75 years or YOUNGER should receive HIGH intensity statin dose unless contraindicated. You will be required to document reason for non-treatment if statin daily dose does not meet guidelines. HIGH DOSE STATIN THERAPY DAILY Atorvastatin > than or = to 40 mg Rosuvastatin > than or = to 20 mg Amlodipine + Atorvastatin > than or = to 2.5/40 mg Ezetimibe + Simvastatin 10/80 mg Simvastatin 80mg Discharge Plan Admission Admit Date/Time: 11/02/23 20:51 Primary Reason for Your Visit: Rash and discolored urine Attending Provider: Jeff Huerta Primary Care Provider: Emory Villafuerte Consulting Providers: Ronal Garcia; Judah Paul; [place]; Rene Ventura; Escobar Bran Instructions Additional Instructions / Restrictions: Please take doxycycline for another 7 days to complete course of antibiotics for possible Lyme disease. Please start taking Lasix 20 mg daily for mild heart failure. The 30-day cardiac event monitor will come in the mail for you, please use as instructed. Discharge Orders/Prescriptions Prescriptions: New doxycycline monohydrate 100 mg Capsule 100 mg PO BID 7 Days Qty: 14 0RF furosemide [Lasix] 20 mg tablet 20 mg PO DAILY Qty: 30 2RF No Action NK Other Ambulatory Orders: 30 Day Event Recorder Preventi (Routine) Timeframe: 1 Month Facility: [facility] - Location: Cardiovascular Services Ordered By: Dr. Jeff Huerta Referrals / Follow Up: Emory Villafuerte DO [Primary Care Provider] - Disposition Disposition (needs filled in before D/C Order can be placed): Home, Self Care Charges/Coding Visit Charges Inpatient E&M: 78265 Disch Hosp >30min
[2023-11-04 14:53] VITALS: BP 130/76; PULSE 71; RESP 14; TEMP 36.4; O2SAT 100
--- NOTE | 2023-11-04 15:37 | CASEMGMT ---
Patient has order for discharge. RN CM in to discuss needs at discharge. Patient denies needs or help at discharge. Patient had no further questions or concerns.
--- NOTE | 2023-11-04 17:28 | PN.RENAL_ITS ---
Subjective Subjective Following for proteinuria. Patient is being discharged today. He denies chest pain, shortness of breath, or nausea. He still has significant edema around the ankle bilaterally. Objective Data Objective Data Vital Signs: Vital Signs Temp Pulse Resp BP Pulse Ox O2 Del Method 97.6 F L 71 14 130/76 H 100 Room Air 11/04/23 14:53 11/04/23 14:53 11/04/23 14:53 11/04/23 14:53 11/04/23 14:53 11/04/23 14:53 Oxygen Delivery Method Room Air Weight: 92.5 kg Body Mass Index (BMI) 27.6 Intake & Output: Intake and Output for Last 24 Hours 11/02/23 11/03/23 11/04/23 23:59 23:59 23:59 Intake Total 310 / 750 3236.67 / 3236.67 240 / 240 Output Total 300 / 300 400 / 400 Balance 310 / 450 2936.67 / 2936.67 -160 / -160 Lab / Micro Data 11/04/23 06:30 11/04/23 06:30 Labs: Laboratory Results - last 24 hr 11/02/23 19:30: CSF Lyme IgM Antibody Positive, Lyme Disease IgG Ab Positive, Lyme Total Antibody Positive, Lyme Disease Ab Note Comment H 11/03/23 04:04: Hepatitis A IgM Ab Negative, Hep Bs Antigen Negative, Hep B Core IgM Ab Negative, Hepatitis C Ab (EIA) Non Reactive, Hep C Ab Comment Comment 11/04/23 04:49: Urine Collection Time 24.0, Timed Urine Volume 600, Ur Total Protein 24 Hr 316.2 H, Urine Total Protein 52.7 H 11/04/23 06:30: WBC 8.8, RBC 3.54 L, Hgb 11.1 L, Hct 33.4 L, MCV 94.4 H, MCH 31.4, MCHC 33.2, RDW Std Deviation 42.5, RDW Coeff of Atul 12.2, Plt Count 255, MPV 9.1, Immature Gran % (Auto) 0.800, Neut % (Auto) 85.1 H, Lymph % (Auto) 9.0 L, [place] % (Auto) 2.3, Eos % (Auto) 2.6, Baso % (Auto) 0.2, Absolute Neuts (auto) 7.5, Absolute Lymphs (auto) 0.80 L, Nucleated RBC % 0, Sodium 139, Potassium 3.8, Chloride 109 H, Carbon Dioxide 24.0, Anion Gap 6, BUN 13, Creatinine 0.97, Estim Creat Clear Calc 73.33, Est GFR (MDRD) Af Amer 97, Est GFR (MDRD) Non-Af 80, BUN/Creatinine Ratio 13.4, Glucose 109 H, Calcium 8.4 L, Phosphorus 2.4 L, I fernanda 50 L, TIBC 146 L, Iron Saturation 34.2, Ferritin 822 H, Triglycerides 92, Cholesterol 93, LDL Cholesterol 54, VLDL Cholesterol 18, HDL Cholesterol 21 L, V itamin B12 170 L, Folate 5.50 11/04/23 10:04: U Random Total Protein 21.6 H, Urine Creatinine 130.00, Protein/Creatinin Ratio 166 Physical Exam Narrative Alert awake oriented x 3 no obvious distress no pallor no icterus no JVD s1s2 no murmurs lungs clear abdomen soft no organomegaly 2+ lower extremity edema Extensive maculopapular blanching rash Assessment & Plan Assessment/Plan (1) Proteinuria: PLAN: Extensive anasarca, maculopapular rash. Urine analysis shows 1+ protein and blood. Also gives her bilirubin. LFTs are high, bilirubin is a little bit high. The rash does not look like could be vasculitis. He does have fevers, possible tick bites. Could be Lyme disease. Urine protein creatinine ratio and 24-hour urine protein collection are not impressive. There is no evidence of nephrotic range proteinuria. Serologies are pending. Renal function remains normal. Okay for discharge from nephrology standpoint. Will get him followed up in office to follow-up on pending serologies and to follow-up on proteinuria.
[2023-11-08 17:09] LABS: Perinuclear Ab (P-ANCA) <1:20 titer (Neg:<1:20)
== END 2023-11-04 19:21 | disposition home or self-care (01) | DRG 868 ==
LOC: ED 20:50 → PCU 21:00
PROVIDERS: Internal Medicine; Internal Medicine Nephrology; Admitting Provider Internal Medicine; Emergency Provider Emergency Medicine; Referring Provider Internal Medicine; Visit Provider Hospitalist
DX: A69.20 Lyme disease, unspecified (principal); I50.20 Unspecified systolic (congestive) heart failure; I42.8 Other cardiomyopathies; E88.09 Other disorders of plasma-protein metabolism, not elsewhere classified; D64.9 Anemia, unspecified; E87.6 Hypokalemia; Z87.891 Personal history of nicotine dependence; E66.3 Overweight; R74.8 Abnormal levels of other serum enzymes; R80.9 Proteinuria, unspecified; Z68.26 Body mass index [BMI] 26.0-26.9, adult; W57.XXXA Bitten or stung by nonvenomous insect and other nonvenomous arthropods, initial encounter
CPT/HCPCS: 36415; 74177; 80048; 80053; 80061; 80074; 81001; 81050; 82550; 82570; 82607; 82728; 82746; 83540; 83550; 83605; 83735; 83880; 84100; 84134; 84156; 84443; 85025; 85610; 85730; 86256; 86618; 87040; 93306; 94668; 97802; 99284; Q9967; A4216